=== PATIENT | female | born 1975 | race Caucasian/White ===

== ENCOUNTER 2017-01-16 21:35 | Emergency (ER) | payer SELFPAY ==
[~2017-01-16] VITALS: Ht 154.9 cm; Wt 77.0 kg
[2017-01-16 21:46] VITALS: BP 137/63
[2017-01-16] MEDS ORDERED: KETOROLAC TROMETHAMINE 30 MG/ML VIAL IM ONE (22:45)
[2017-01-16] MEDS ORDERED: TraMADol HCL 50 MG TABLET PO ONE (22:45)
== END 2017-01-16 23:02 | disposition home or self-care (01) ==
LOC: EMS 21:40
DX: S16.1XXA Strain of muscle, fascia and tendon at neck level, initial encounter (principal); R51 Headache; X58.XXXA Exposure to other specified factors, initial encounter; Y93.89 Activity, other specified; Y92.89 Other specified places as the place of occurrence of the external cause; Y99.8 Other external cause status
CPT/HCPCS: 96372; 99283; J1885